=== PATIENT | female | born 1980 | race Caucasian/White ===

== ENCOUNTER 2023-02-18 14:24 | Emergency (ER) | payer BC ==
[~2023-02-18] VITALS: Ht 172.7 cm; Wt 68.5 kg
[2023-02-18] MEDS ORDERED: oxyCODONE/APAP (5/325 MG) 1 UDTAB TABLET PO ONE (15:30)
[2023-02-18] MEDS ORDERED: TDAP [DIPH/PERTUSSIS/TET] 0.5 ML VIAL IM ONE ×2 (15:30→15:59)
[2023-02-18] MEDS ORDERED: oxyCODONE/APAP (5/325 MG) 1 UDTAB TABLET ONE (15:59)
[2023-02-18] MEDS ORDERED: BACITRACIN ZINC OINT PACKET 1 EA PACKET TP ONE (17:00)
[2023-02-18] MEDS ORDERED: OXYC-128 PO (17:04)
[2023-02-18 17:36] VITALS: BP 134/82; TEMP 98.7; O2SAT 100
[2023-02-18] MEDS ORDERED: TRAM50TA2 PO (19:21)
== END 2023-02-18 17:37 | disposition home or self-care (01) ==
LOC: ER 14:30
DX: T23.211A Burn of second degree of right thumb (nail), initial encounter (principal); Z60.2 Problems related to living alone; X12.XXXA Contact with other hot fluids, initial encounter; Y93.89 Activity, other specified; Y92.89 Other specified places as the place of occurrence of the external cause; Y99.8 Other external cause status
CPT/HCPCS: 90715